=== PATIENT | male | born 1980 | race Caucasian/White ===

== ENCOUNTER 2017-01-27 11:31 | Day surgery (SDC) | payer BC ==
[2017-01-25 13:07] VITALS: BMI 22.4
[2017-01-27] MEDS ORDERED: MIDAZOLAM HCL 2 MG/2 ML SINGLE DOSE VIAL ONE (14:39)
[2017-01-27] MEDS ORDERED: BUPIVACAINE HCL/PF 0.5% (5MG/ML) 10 ML VIAL ONE (14:57)
[2017-01-27] MEDS ORDERED: CLINDAMYCIN PHOSPHATE 600 MG/4 ML VIAL ONE (15:07)
[2017-01-27] MEDS ORDERED: ONDANSETRON 4 MG/2 ML VIAL ONE (15:07)
[2017-01-27] MEDS ORDERED: KETOROLAC TROMETHAMINE 30 MG/1 ML VIAL ONE (15:07)
[2017-01-27] MEDS ORDERED: DESFLURANE GAS 240 ML BOTTLE IH ONE (15:48)
[2017-01-27] MEDS ORDERED: PROPOFOL 20 ML ONE (16:45)
[2017-01-27] MEDS ORDERED: ONDANSETRON 4 MG/2 ML VIAL IVPUSH PRN (17:06)
[2017-01-27] MEDS ORDERED: oxyCODONE HCL 5 MG TABLET PO PRN ×2 (17:06)
[2017-01-27] MEDS ORDERED: LACTATED RINGERS SOLUTION 1,000 ML IV SCH (17:15)
[2017-01-27] MEDS ORDERED: oxyCODONE HCL 5 MG TABLET ONE (17:59)
[2017-01-27 18:20] VITALS: TEMP 97.5
[2017-01-27 18:54] VITALS: BP 131/72; PULSE 85
--- NOTE | 2017-01-29 09:21 | OP ---
ADDENDUM Jeremías Montanez, the assistant women's rowing coach, was integral throughout this procedure. The procedure could not have been performed without a skilled operative assistant women's rowing coach. MIGDALIA OLIVER M.D. [id number]
--- NOTE | 2017-01-29 09:26 | OP ---
DATE OF OPERATION: 01/27/2017 PREOPERATIVE DIAGNOSIS: Left index finger comminuted, intraarticular, displaced proximal phalanx fracture with proximal interphalangeal joint intraarticular extension. POSTOPERATIVE DIAGNOSIS: Left index finger comminuted, intraarticular, displaced proximal phalanx fracture with proximal interphalangeal joint intraarticular extension. OPERATIVE PROCEDURE: Open reduction and internal fixation of left index finger proximal phalanx intraarticular fracture at proximal interphalangeal joint. SURGEON: Yaron Isabel MD REHABILITATION NURSE: MILTON Dixon ANESTHESIA: General. COMPLICATIONS: None. ESTIMATED BLOOD LOSS: Minimal. INDICATION FOR PROCEDURE: The patient is a 36-year-old male with the above finding, indicated for operative treatment. Risks, benefits, and alternatives were discussed with the patient at length. Proper informed consent was obtained. PROCEDURE: After proper identification of the patient and the correct operative site, the patient was brought to the operating room and placed supine on the operating table. All prominences were well padded. General anesthesia as well as intravenous antibiotics was given. The left upper extremity was prepped and draped in the usual sterile fashion. A well-padded tourniquet was placed with a sterile prep. An Esmarch bandage was used to exsanguinate the left upper extremity. The tourniquet was inflated to 250 mmHg. A curvilinear incision was made in the dorsal aspect of the left index finger PIP joint and proximal phalanx. Incision was taken sharply through the skin, with blunt and sharp dissection through the subcutaneous tissues. A Chamay approach was used with a distally based flap of the extensor tendon being left intact as the central slip insertion. The fracture was identified and found to be severely comminuted. Multiple submillimeter pieces of articular surface as well as cancellous and cortical bone were found. Pieces that were large enough to repair in place were saved, and those that were not, if they were bony, they were used as bone graft. The shaft fracture was fixed first with two bicortical 1.0-mm screws across the fracture site which provided secure stable fixation, and 50% of the articular surface was attached to this piece and was intact and in good condition. The remainder 50% of the articular surface was broken into multiple fragments. There was one fairly large fragment representing approximately 30% to 40% of the articular surface. The remainder of the fragments was too small for repair. The main condylar fragment was then approximated with articular alignment made using the middle phalanx as a template and the proximal phalanx cortical bone as a guide as well. This was matched up as well as possible to the remaining articular surface. This was then held with 3 separate 0.06 K-wires. These were placed percutaneously through the skin and cut short and bent outside of the skin. This provided a stable satisfactory fixation and satisfactory alignment of all fracture fragments. Radiographs were taken throughout the procedure and at the end of the procedure, confirming proper placement and size of all hardware as well as reduction of fracture. Wound was irrigated with saline. The extensor mechanism was repaired with 6-0 nylon suture. The skin was repaired with 5-0 fast-absorbing plain gut as well as Dermabond. Sterile dressings and a splint were placed. The patient was reversed from anesthesia and brought to recovery room in stable condition. He tolerated the procedure well. Jennyfer [id number]
== END 2017-01-27 18:25 | disposition home or self-care (01) ==
LOC: FASU 11:31
PROVIDERS: ATTEND Orthopaedic Surgery Hand Surgery
PROC: 0PSV04Z Reposition Left Finger Phalanx with Internal Fixation Device, Open Approach (ICD-10-PCS; principal; 2017-01-27 15:03)
DX: S62.611A Displaced fracture of proximal phalanx of left index finger, initial encounter for closed fracture (principal); X58.XXXA Exposure to other specified factors, initial encounter; Y93.9 Activity, unspecified; Y92.9 Unspecified place or not applicable
CPT/HCPCS: 73140-TC-LT; 94760